=== PATIENT | male | born 1995 | race Caucasian/White ===

== ENCOUNTER 2016-11-01 20:04 | Emergency (ER) | payer SELFPAY ==
[2016-11-01 20:09] VITALS: BP 144/96
--- NOTE | 2016-11-01 20:37 | ED Physician Documentation ---
PD HPI OPHTHO - Stated complaint Stated Complaint: RT EYE SWELLING - Chief complaint Chief Complaint: Heent - History obtained from History obtained from: Patient - History of Present Illness Timing - onset: Today Timing - details: Constant Location: Right Associated symptoms: Swelling Similar symptoms before: Has not had sx before - Additional information Additional information: The patient is an otherwise healthy 21-year-old male who presents with ecchymosis of his right upper eyelid. He does not recall an injury. The ecchymosis was first noticed today. He wears glasses, and denies any change in his visual acuity. He denies any associated pain. He does admit to partying last night, but does not recall any trauma to his face or eyebrow. One week ago he had tearing of his eyes for one day which he attributed to environmental allergies. Review of Systems Constitutional: denies: Fever Eyes: denies: Decreased vision, Photophobia, Discharge Ears: denies: Ear pain Nose: denies: Congestion Throat: denies: Sore throat GI: denies: Nausea, Vomiting Skin: denies: Rash Neurologic: denies: Headache PD PAST MEDICAL HISTORY - Past Medical History Cardiovascular: None Respiratory: None Neuro: None Endocrine/Autoimmune: None - Present Medications Home Medications: Ambulatory Orders Medication Instructions Recorded Confirmed No Known Home Medications [No 11/01/16 11/01/16 Known Home Medications] - Allergies Allergies/Adverse Reactions: Allergies Allergy/AdvReac Type Severity Reaction Status Date / Time No Known Drug Allergies Allergy Verified 11/01/16 20:09 - Social History Does the pt smoke?: Yes Smoking Status: Current some day smoker (E-cigarette) PD ED PE NORMAL - Vitals Vital signs reviewed: Yes (borderline hypertension initially) - General General: Alert and oriented X 3, Well developed/nourished - HEENT HEENT: PERRL, EOMI, Other (There is mild ecchymosis of the right upper eyelid, with tenderness to palpation at the lateral aspect of the eyebrow. There is no erythema, and no appreciable swelling. Conjunctiva is clear. Pupils are equal round reactive to light, extraocular movements intact. Anterior chambers clear. Fundi with sharp disc margins.) - Respiratory Respiratory: No respiratory distress - Derm Derm: No rash - Neuro Neuro: Alert and oriented X 3, No motor deficit, Normal speech Results - Vitals Vitals: Vital Signs - 24 hr 11/01/16 20:07 Temperature 36.7 C Heart Rate 71 Respiratory 16 Rate Blood Pressure 144/96 H O2 Saturation 100 Oxygen O2 Source Room air PD MEDICAL DECISION MAKING - ED course Complexity details: considered differential, d/w patient ED course: The patient's presentation is consistent with contusion to the right eyebrow, causing faint ecchymosis of the upper lid. Visual acuity is good, and there is no evidence of injury to the globe or conjunctiva. I discussed with the patient and his male roll former the diagnosis, expected course of healing, as well as potentially worrisome signs or symptoms that should prompt reevaluation in the emergency department. Departure - Departure Disposition: 01 Home, Self Care Clinical Impression: Contusion of right eyebrow Qualifiers: Encounter type: initial encounter Qualified Code(s): S00.11XA - Contusion of right eyelid and periocular area, initial encounter Condition: Stable Instructions: ED Contusion Eye Follow-Up: [facility] [Provider Group] Comments: You can apply icepack to your right eye intermittently for the next 2 days to reduce swelling. You can use Tylenol or ibuprofen if needed for discomfort. Followup with ophthalmology, or return to the emergency department, if you develop increasing swelling, pain, visual impairment, or otherwise worsening symptoms.
== END 2016-11-01 20:44 | disposition home or self-care (01) ==
LOC: ED 20:04
DX: S00.11XA Contusion of right eyelid and periocular area, initial encounter (principal); X58.XXXA Exposure to other specified factors, initial encounter; F17.290 Nicotine dependence, other tobacco product, uncomplicated
CPT/HCPCS: 99282; 99283